=== PATIENT | female | born 1960 | race Caucasian/White ===

== ENCOUNTER 2016-10-25 13:26 | Emergency (ER) | payer OTHER ==
[2016-10-25 13:41] VITALS: TEMP 98.3; BMI 26.6
[2016-10-25] MEDS ORDERED: OXYCODONE/APAP 5/325MG COMBO TABLET PO ONE (14:21)
[2016-10-25] MEDS ORDERED: CYCLOBENZAPRINE HCL 10 MG TABLET (FP) PO ONE (14:21)
[2016-10-25] MEDS ORDERED: DIPHTH,PERTUSS(ACELL),TET 0.5 ML DISP.SYRIN IM ONE (14:23)
[2016-10-25] MEDS ORDERED: OXYCODONE/APAP 5/325MG COMBO TABLET ONE (14:32)
[2016-10-25] MEDS ORDERED: CYCLOBENZAPRINE HCL 10 MG TABLET (FP) ONE (14:32)
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
[2016-10-25 18:11] VITALS: BP 123/76; PULSE 100
== END 2016-10-25 18:12 | disposition home or self-care (01) ==
LOC: JER 13:26
PROC: 3E0234Z Introduction of Serum, Toxoid and Vaccine into Muscle, Percutaneous Approach (ICD-10-PCS; principal; 2016-10-25)
DX: S80.00XA Contusion of unspecified knee, initial encounter (principal); V03.99XA Pedestrian with other conveyance injured in collision with car, pick-up truck or van, unspecified whether traffic or nontraffic accident, initial encounter; Y93.89 Activity, other specified; Y92.481 Parking lot as the place of occurrence of the external cause; Z87.891 Personal history of nicotine dependence; J45.909 Unspecified asthma, uncomplicated; M79.7 Fibromyalgia; K21.9 Gastro-esophageal reflux disease without esophagitis
CPT/HCPCS: 73110-TC-RT; 73130-TC-RT; 73562-TC-LT; 73562-TC-RT; 74150-TC; 90715; 99282-25

== ENCOUNTER 2020-11-01 16:36 | Inpatient (IN) | payer OTHER ==
[2020-11-01] MEDS ORDERED: ACETAMINOPHEN 325 MG TABLET (FP) PO ONE (18:33)
[2020-11-01] MEDS ORDERED: LIDOCAINE 5% TOPICAL PATCH TP ONE (18:33)
[2020-11-01] MEDS ORDERED: ACETAMINOPHEN 325 MG TABLET (FP) ONE (18:52)
[2020-11-01 19:38] LABS: BASO % 0.6 % (0-2.0); EOS % 0.7 % (0-4.5); HEMOGLOBIN 13.5 GM/dL (10.7-15.3); LYMPH % 27.5 % (8-40); MCH 32.8 pg (25.7-33.7); MCHC 33.6 g/dl (32.0-36.0); MEAN CELL VOLUME 97.7 fl (80-96); MEAN PLT VOLUME 8.7 fl (7.5-11.1); MONO % 10.4 % (3.8-10.2); NEUT % 60.8 % (42.8-82.8); PLATELET COUNT 207 10^3/uL (134-434); RDW 14.6 % (11.6-15.6); WHITE BLOOD COUNT 11.7 K/mm3 (4.0-10.0)
[2020-11-01 19:54] LABS: INR 1.05 (0.83-1.09); PROTHROMBIN TIME (PATIENT) 12.9 SEC (9.7-13.0)
[2020-11-01 19:56] LABS: ACTIVATED PTT 32.5 SECONDS (25.2-36.5)
[2020-11-01 19:58] LABS: CALCIUM 9.4 mg/dL (8.5-10.1)
[2020-11-01 19:59] LABS: ALBUMIN 3.9 g/dl (3.4-5.0); BLOOD UREA NITROGEN 18.1 mg/dL (7-18)
[2020-11-01 20:02] LABS: CREATININE 0.6 mg/dL (0.55-1.3)
[2020-11-01 20:04] LABS: BILIRUBIN,TOTAL 0.8 mg/dL (0.2-1); TOT PROT 7.1 g/dl (6.4-8.2)
[2020-11-01] MEDS ORDERED: LIDOCAINE 5% TOPICAL PATCH ONE (20:52)
[2020-11-01] MEDS ORDERED: LIDOCAINE PATCH REMOVAL MC ONE (22:00)
[2020-11-01] MEDS ORDERED: ALBUTEROL SO4 HFA INHALER IH PRN (22:18)
[2020-11-01] MEDS ORDERED: HEPARIN NA (PORCINE) 5,000 UNITS/ML 1ML VIAL ONE (23:23)
[2020-11-01] MEDS: HEPARIN NA (PORCINE) 5,000 UNITS/ML 1ML VIAL SQ SCH (23:47)
[2020-11-02 03:16] VITALS: BMI 26.4
[2020-11-02] MEDS: oxyCODONE HCL 5 MG TABLET PO PRN ×3 (04:36→21:08)
[2020-11-02] MEDS: ACETAMINOPHEN 325 MG TABLET (FP) PO PRN ×3 (04:37→21:07)
[2020-11-02] MEDS: HEPARIN NA (PORCINE) 5,000 UNITS/ML 1ML VIAL SQ SCH ×3 (05:26→23:01)
[2020-11-02] MEDS: PANTOPRAZOLE 40 MG TABLET PO SCH (10:01)
[2020-11-02] MEDS: DULoxetine HCL 20 MG CAPSULE.DR PO SCH (10:16)
[2020-11-02] MEDS ORDERED: ATORVASTATIN CA 40 MG TABLET (FP) PO SCH (22:00)
[2020-11-02] MEDS ORDERED: MONTELUKAST NA 10 MG TABLET PO SCH (22:00)
[2020-11-03] MEDS: HEPARIN NA (PORCINE) 5,000 UNITS/ML 1ML VIAL SQ SCH (07:11)
[2020-11-03] MEDS: oxyCODONE HCL 5 MG TABLET PO PRN (07:11)
[2020-11-03] MEDS: ACETAMINOPHEN 325 MG TABLET (FP) PO PRN (07:13)
[2020-11-03] MEDS: PANTOPRAZOLE 40 MG TABLET PO SCH (09:47)
[2020-11-03] MEDS ORDERED: PT OWN MED DRAWER 7, Y5N ONE (09:49)
[2020-11-03] MEDS: DULoxetine HCL 20 MG CAPSULE.DR PO SCH (09:50)
[2020-11-03] MEDS ORDERED: CHOLECALCIFEROL (VIT D3) 1,000 UNIT (25 MCG) TABLET PO SCH (10:00)
[2020-11-03] MEDS ORDERED: ASPIRIN COATED 81 MG TABLET.EC PO SCH (12:30)
[2020-11-03 14:15] VITALS: BP 129/81; PULSE 80; TEMP 98.3
== END 2020-11-03 16:00 | disposition home or self-care (01) | DRG 342 ==
LOC: JER 16:36 → JERBED 21:04 → J6S 11-02 02:14
PROVIDERS: ADMIT Internal Medicine; ATTEND Internal Medicine
DX: S82.121A Displaced fracture of lateral condyle of right tibia, initial encounter for closed fracture (principal); S89.91XA Unspecified injury of right lower leg, initial encounter; S46.011A Strain of muscle(s) and tendon(s) of the rotator cuff of right shoulder, initial encounter; S99.911A Unspecified injury of right ankle, initial encounter; S80.01XA Contusion of right knee, initial encounter; J45.909 Unspecified asthma, uncomplicated; W01.0XXA Fall on same level from slipping, tripping and stumbling without subsequent striking against object, initial encounter; I10 Essential (primary) hypertension; E78.5 Hyperlipidemia, unspecified; Y93.01 Activity, walking, marching and hiking; Y92.000 Kitchen of unspecified non-institutional (private) residence as the place of occurrence of the external cause; Y99.8 Other external cause status; G43.909 Migraine, unspecified, not intractable, without status migrainosus; F41.9 Anxiety disorder, unspecified; F32.9 Major depressive disorder, single episode, unspecified
CPT/HCPCS: 36415; 73030-TC-RT-FY; 73560-TC-RT-FY; 73590-TC-RT-FY; 73610-TC-RT-FY; 73630-TC-RT-FY; 80053; 85025; 85610; 85730; 93005; 93010; 93971-TC; 97116-GP; 97161-GP; 99285-25; C9803; J1644; U0003; U0005